=== PATIENT | female | born 2000 | race Asian ===

== ENCOUNTER 2022-04-11 15:08 | Emergency (ER) | payer SELFPAY ==
[~2022-04-11] VITALS: Ht 162.6 cm; Wt 50.0 kg
[2022-04-11 15:59] VITALS: BP 144/66
== END 2022-04-11 18:19 | disposition home or self-care (01) ==
LOC: EMS 15:17
DX: S51.811A Laceration without foreign body of right forearm, initial encounter (principal); F41.9 Anxiety disorder, unspecified; F32.9 Major depressive disorder, single episode, unspecified; F90.2 Attention-deficit hyperactivity disorder, combined type; X78.1XXA Intentional self-harm by knife, initial encounter; Y93.89 Activity, other specified; Y92.89 Other specified places as the place of occurrence of the external cause; Y99.8 Other external cause status
CPT/HCPCS: 99285; Z7502